=== PATIENT | male | born 2000 | race Caucasian/White ===

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

== ENCOUNTER 2018-06-10 09:56 | Outpatient (CLI) | payer OTHER ==
[2018-06-10] MEDS ORDERED: Gadobenate Dimeglumine 529 MG/1 ML (20ML VIAL) ONE (12:59)
--- NOTE | 2018-06-10 13:36 | MRI ---
MRI BRAIN AND INTERNAL AUDITORY CANALS WITH AND WITHOUT CONTRAST: DATE: 06/10/2018. HISTORY: A 17-year-old male with vertigo, R42. TECHNIQUE: Multiple sequences obtained in axial, sagittal, and coronal planes; both whole brain images and thin slices through the IAC's, pre and post IV injection of gadolinium-based contrast agent: 20 mL of Mult iHance. FINDINGS: The ventricles are normal in size and configuration. There is no major intraaxial signal abnormality , restricted diffusion, abnormal intraaxial enhancement, mass, midline shift or any other mass effect , recent intraaxial hemorrhage, or extraaxial fluid collection. There is no evidence of dural venous sinus thrombosis. The left maxillary sinus is completely filled with material that is T1-isointense to muscle, T2-hyperintense, and with rim enhancement. There is severe partial opacification throughout the left ethmoid air cells with mixed signal intensity, with enhancement. There is a small 0.7 cm nonenhancing polypoid mass at the anterior aspect of the right sphenoid air c ell. The rest of the sphenoid sinus is clear. Right maxillary sinus and right frontal sinus have no rmal signal voids. No evidence of mastoid effusion. There is no abnormal enhancement, mass, or morphologic abnormality, involving the cerebellopontine an gles, 7th-8th nerve complexes, internal auditory canals, cochleae, vestibules, vestibular aqueducts, or semicircular canals. IMPRESSION: 1. Normal brain. 2. Left maxillary and ethmoid sinus opacification: left ostiomeatal unit pattern of occlusive sinusi tis. Marisa POS: DEB
== END 2018-06-10 09:57 | disposition home or self-care (01) ==
LOC: BICMRI 09:56
PROVIDERS: ATTEND Otolaryngology Pediatric Otolaryngology
DX: R42 Dizziness and giddiness (principal); J34.89 Other specified disorders of nose and nasal sinuses
CPT/HCPCS: 70553; A9579

== ENCOUNTER 2018-09-02 09:56 | Outpatient (CLI) | payer OTHER ==
--- NOTE | 2018-09-02 11:36 | CT ---
CT TEMPORAL BONES: 09/02/2018 HISTORY: Headache. Intermittent dizziness with ringing in the bilateral ears. COMPARISON: None. TECHNIQUE: Axial CT imaging at 1 mm intervals, through the temporal bones, without contrast. Coronal reformatte d imaging obtained. FINDINGS: The imaged brain parenchyma appears grossly unremarkable. Partially imaged anterior ethmoid air cells are opacified on the left, and the partially imaged left maxillary sinus is completely opacified. RIGHT TEMPORAL BONE: The internal auditory canal, cochlea, vestibule, vestibular aqueduct, and semic ircular canals appear within normal limits. The course of the facial nerve is normal. The tympanic cavity and mastoid air cells are well aerated . The Prussak space is clear. The scutum is sharp. There is no evidence for osseous dehiscence, an d the ossicles appear intact. Vascular foramina appear normal. LEFT TEMPORAL BONE: The internal auditory canal, cochlea, vestibule, vestibular aqueduct, and semici rcular canals appear within normal limits. The course of the facial nerve appears normal. The mastoid air cells and tympanic cavity are well ae rated. The Prussak space is clear, and the scutum is sharp. No evidence for osseous dehiscence. Th e ossicles are intact. The vascular foramina appear within normal limits. IMPRESSION: Incompletely imaged paranasal sinus disease. Unremarkable CT examination of the temporal bones. POS: DEB
== END 2018-09-02 09:57 | disposition home or self-care (01) ==
LOC: BICCT 09:56
PROVIDERS: ATTEND Otolaryngology Otology & Neurotology
DX: R51 Headache (principal); R42 Dizziness and giddiness; J32.9 Chronic sinusitis, unspecified
CPT/HCPCS: 70480

== ENCOUNTER 2018-12-16 14:03 | Outpatient (CLI) | payer OTHER | END 2018-12-16 14:04 | disposition home or self-care (01) | LOC: CTENTCT 14:03 | PROVIDERS: ATTEND Specialist | DX: J32.9 Chronic sinusitis, unspecified (principal) | CPT/HCPCS: 70486 ==

== ENCOUNTER 2020-02-04 20:47 | Emergency (ER) | payer SELFPAY ==
[2020-02-04] MEDS ORDERED: Acetaminophen 500 MG TAB ONE (21:50)
[2020-02-04] MEDS ORDERED: Ondansetron ODT 4 MG TAB ONE (21:50)
[2020-02-04] MEDS ORDERED: Dexamethasone 10 MG/ML VIAL ONE (21:50)
[2020-02-04] MEDS ORDERED: Ketorolac Tromethamine 30 MG/ML VIAL ONE (21:50)
[2020-02-04] MEDS ORDERED: Meclizine HCl 25 MG TAB ONE (21:50)
[2020-02-04] MEDS ORDERED: Morphine 10 MG/ML VIAL ONE (23:31)
== END 2020-02-05 00:30 | disposition home or self-care (01) ==
LOC: ERS 20:47
DX: G43.909 Migraine, unspecified, not intractable, without status migrainosus (principal); R42 Dizziness and giddiness
CPT/HCPCS: 96372; 99283; J1100; J1885; J2270; Q0162

== ENCOUNTER 2022-03-07 11:36 | Emergency (ER) | payer SELFPAY ==
[2022-03-07] MEDS ORDERED: diphenhydrAMINE 50 MG/ML VIAL ONE (12:27)
[2022-03-07] MEDS ORDERED: Metoclopramide HCl 10 MG/2 ML VIAL ONE (12:27)
[2022-03-07] MEDS ORDERED: Ketorolac Tromethamine 30 MG/ML VIAL ONE (12:27)
[2022-03-07 13:17] LABS: #Eosinphils 0.1 thou/uL (0.0-0.7); #Lymphocytes 0.9 thou/uL (1.20-3.40); #Monocytes 0.6 thou/uL (0.11-0.59); #Neutrophils 3.4 thou/uL (1.40-6.50); %Basophils 0.3 % (0.0-1.0); %Eosinophils 1.2 % (0.0-10.0); %Lymphocytes 18.4 % (21.0-51.0); %Monocytes 12.3 % (0.0-10.0); %Neutrophils 67.8 % (42.0-75.0); Hemoglobin 14.8 g/dL (14.0-18.0); Mean Corpuscular HGB CONC 34.9 g/dL (32.0-36.0); Mean Corpuscular Hemoglobin 30.1 pg (27.0-31.0); Mean Corpuscular Volume 86.1 fL (78.0-98.0); Platelet Count 231 thou/uL (130-400); RBC Distribution Width 12.3 % (11.5-14.5); Red Blood Cell (RBC) Count 4.91 mill/uL (4.70-6.10)
[2022-03-07 13:57] LABS: ALT (SGPT) 29 U/L (8-55); AST (SGOT) 17 U/L (5-34); Albumin 4.8 g/dL (3.5-5.0); Alkaline Phosphatase 49 U/L (40-110); Anion Gap 17 mmol/L (10-20); BUN (Urea Nitrogen) 9 mg/dL (8.9-20.6); Bilirubin, Total 1.3 mg/dL (0.2-1.2); CK (CPK) 57 U/L (30-200); Calc. Creatinine Clearance 0 mL/min (70-130); Calcium 10.3 mg/dL (7.8-10.44); Carbon Dioxide 24 mmol/L (22-29); Chloride 102 mmol/L (98-107); Estimated GFR 115; Globulin 2.9 g/dL (2.4-3.5); Glucose 105 mg/dL (70-105); Potassium 3.9 mmol/L (3.5-5.1); Protein, Total 7.7 g/dL (6.0-8.3); Sodium 139 mmol/L (136-145)
== END 2022-03-07 14:11 | disposition home or self-care (01) ==
LOC: ERS 11:36
DX: R51.9 Headache, unspecified (principal); Z79.899 Other long term (current) drug therapy
CPT/HCPCS: 70450; 80053; 82550; 85025; 96365; 96375; J1200; J1885; J2765

== ENCOUNTER 2022-12-11 08:51 | Day surgery (SDC) | payer OTHER ==
[2022-12-09 11:37] VITALS: BMI 29.7
[2022-12-11] MEDS ORDERED: Oxymetazoline HCl 0.05% (30 ML BOT) ONE ×2 (09:59→10:36)
[2022-12-11] MEDS ORDERED: Lidocaine 1% MPF 2 ML VIAL ONE (10:00)
[2022-12-11] MEDS ORDERED: EPINEPHrine 1 MG/ML AMP ONE (10:36)
[2022-12-11] MEDS ORDERED: Lidocaine 1% (PF) 30 ML VIAL ONE (10:36)
[2022-12-11] MEDS ORDERED: Bacitracin Zinc Ointment 30 gm TUBE ONE (10:36)
[2022-12-11] MEDS ORDERED: fentaNYL 50 mcg/mL 1 mL Vial ONE (10:38)
[2022-12-11] MEDS ORDERED: Famotidine/PF 20 mg/2ml Vial ONE (10:38)
[2022-12-11] MEDS ORDERED: Meperidine HCl/PF 25 MG/ML VIAL ONE (10:38)
[2022-12-11] MEDS ORDERED: Ketorolac Tromethamine 30 MG/ML VIAL ONE (11:02)
[2022-12-11] MEDS ORDERED: Dexamethasone 20 MG/5 ML VIAL ONE (11:02)
[2022-12-11] MEDS ORDERED: Ondansetron PF 4 MG/2 ML Vial ONE (11:02)
[2022-12-11] MEDS ORDERED: Metoclopramide HCl 10 MG/2 ML VIAL ONE (11:02)
[2022-12-11] MEDS ORDERED: Lidocaine 1% PF 5 ML VIAL ONE (11:02)
[2022-12-11] MEDS ORDERED: PROPOFOL 200 MG/20 ML VIAL ONE (11:02)
== END 2022-12-11 14:41 | disposition home or self-care (01) ==
LOC: SDC 08:51
PROVIDERS: ATTEND Otolaryngology Plastic Surgery within the Head & Neck
PROC: 099T8ZZ Drainage of Left Frontal Sinus, Via Natural or Artificial Opening Endoscopic (ICD-10-PCS; principal; 2022-12-11)
PROC: 095L0ZZ Destruction of Nasal Turbinate, Open Approach (ICD-10-PCS; principal; 2022-12-11)
PROC: 09SM0ZZ Reposition Nasal Septum, Open Approach (ICD-10-PCS; principal; 2022-12-11)
PROC: 09TV8ZZ Resection of Left Ethmoid Sinus, Via Natural or Artificial Opening Endoscopic (ICD-10-PCS; principal; 2022-12-11)
PROC: 8E09XBZ Computer Assisted Procedure of Head and Neck Region (ICD-10-PCS; principal; 2022-12-11)
PROC: 099R8ZZ Drainage of Left Maxillary Sinus, Via Natural or Artificial Opening Endoscopic (ICD-10-PCS; principal; 2022-12-11)
PROC: 09TU8ZZ Resection of Right Ethmoid Sinus, Via Natural or Artificial Opening Endoscopic (ICD-10-PCS; principal; 2022-12-11)
PROC: 099S8ZZ Drainage of Right Frontal Sinus, Via Natural or Artificial Opening Endoscopic (ICD-10-PCS; principal; 2022-12-11)
PROC: 099X8ZZ Drainage of Left Sphenoid Sinus, Via Natural or Artificial Opening Endoscopic (ICD-10-PCS; principal; 2022-12-11)
PROC: 099Q8ZZ Drainage of Right Maxillary Sinus, Via Natural or Artificial Opening Endoscopic (ICD-10-PCS; principal; 2022-12-11)
PROC: 099W8ZZ Drainage of Right Sphenoid Sinus, Via Natural or Artificial Opening Endoscopic (ICD-10-PCS; principal; 2022-12-11)
DX: J32.4 Chronic pansinusitis (principal); J34.2 Deviated nasal septum; J34.3 Hypertrophy of nasal turbinates; J33.9 Nasal polyp, unspecified; J34.89 Other specified disorders of nose and nasal sinuses; Z87.820 Personal history of traumatic brain injury
CPT/HCPCS: J0171; J1100; J1885; J2001; J2175; J2405; J2704; J2765; J3010; S0028